=== PATIENT | male | born 1975 | race Caucasian/White ===

== ENCOUNTER 2024-04-20 09:02 | Outpatient (CLI) | payer BC, SELFPAY | END 2024-04-20 09:03 | disposition home or self-care (01) | PROVIDERS: PCP Family Medicine; Visit Provider Family Medicine | DX: E78.00 Pure hypercholesterolemia, unspecified (principal); I10 Essential (primary) hypertension; R36.1 Hematospermia; R82.90 Unspecified abnormal findings in urine; Z80.42 Family history of malignant neoplasm of prostate; Z12.5 Encounter for screening for malignant neoplasm of prostate; Z13.29 Encounter for screening for other suspected endocrine disorder | CPT/HCPCS: 80048; 80061; 84443; 86140; 87086; G0103 ==

== ENCOUNTER 2024-04-30 09:04 | Outpatient (CLI) | payer BC, SELFPAY | END 2024-04-30 09:05 | disposition home or self-care (01) | LOC: RAD 09:04 | PROVIDERS: PCP Family Medicine; Visit Provider Internal Medicine Cardiovascular Disease | DX: I10 Essential (primary) hypertension (principal); I51.7 Cardiomegaly; E78.00 Pure hypercholesterolemia, unspecified | CPT/HCPCS: 93306 ==

== ENCOUNTER 2024-09-22 07:30 | Outpatient (RCR) | payer BC, SELFPAY | END 2025-01-17 11:25 | disposition home or self-care (01) | PROVIDERS: PCP Family Medicine; Visit Provider Family Medicine | DX: M54.50 Low back pain, unspecified (principal); G89.29 Other chronic pain; Z51.89 Encounter for other specified aftercare | CPT/HCPCS: 97110; 97140; 97162 ==